=== PATIENT | male | born 1935 | race African-American/Black ===

== ENCOUNTER 2025-03-16 22:04 | Inpatient (IN) | payer OTHER ==
[~2025-03-16] VITALS: Ht 170.2 cm; Wt 65.3 kg
[2025-03-16] MEDS: SODIUM CHLORIDE 0.9% (SEPSIS BOLUS) IV ONE (22:34)
[2025-03-16] MEDS: CEFTRIAXONE 1GM/50ML 50 ML IV SCH (22:52)
[2025-03-16 23:11] LABS: BASOPHILS % 0.9 % (0.0-2.0); EOSINOPHILS % 3.8 % (0.0-5.0); HEMOGLOBIN. 10.7 g/dL (14.0-18.0); LYMPHOCYTES % 31.2 % (20.0-50.0); MEAN CORPUSCULAR HGB CONC 32.4 g/dL (31.0-37.0); MEAN CORPUSCULAR VOLUME 89.4 fL (80.0-94.0); MEAN PLATELET VOLUME 8.4 fl (7.4-10.4); NEUTROPHILS % 53.1 % (40.0-76.0); PLATELET 153 x1000/uL (130-400); RED BLOOD CELL COUNT 3.69 mill/uL (4.7-6.1); RED CELL DISTRIBUTION WIDTH 18.4 % (11.6-14.6); WHITE BLOOD COUNT 5.4 x1000/uL (4.5-11.0)
[2025-03-16 23:20] LABS: CHLORIDE 107 mEq/L (98-107); POTASSIUM 3.9 mEq/L (3.5-5.1); SODIUM 141 mEq/L (136-145)
[2025-03-16 23:21] LABS: CALCIUM 9.5 mg/dL (8.7-10.4); CARBON DIOXIDE 24 mEq/L (21-32)
[2025-03-16 23:26] LABS: CREATININE 1.4 mg/dL (0.6-1.3); GLUCOSE 125 mg/dL (70-105); UREA NITROGEN BLOOD 31 mg/dL (9-23)
[2025-03-16 23:27] LABS: D-DIMER 10.28 mg/L FEU (<0.50); INR 1.1; PROTHROMBIN TIME 11.9 sec (9.6-11.0); TROPONIN I HIGH SENSITIVITY 15 ng/L (3.0-53)
[2025-03-16 23:28] LABS: ALANINE AMINOTRANSFERASE 33 IU/L (10-49); ALBUMIN 3.6 g/dL (3.2-4.8); ASPARTATE AMINOTRANSFERASE 36 IU/L (<34); BILIRUBIN DIRECT 0.2 mg/dL (<=3.0)
[2025-03-16 23:29] LABS: BILIRUBIN TOTAL 0.6 mg/dL (0.1-1.0); PROTEIN TOTAL 5.6 g/dL (6.0-8.3)
[2025-03-16 23:31] LABS: LACTIC ACID 2.9 mmol/L (0.4-2.0)
[2025-03-17 01:20] LABS: TROPONIN I HIGH SENSITIVITY 19 ng/L (3.0-53)
[2025-03-17] MEDS ORDERED: DOXYCYCLINE HYCLATE 100 MG/VIAL IV ONE (04:30)
[2025-03-17] MEDS: IOHEXOL-350 100 ML BOTTLE ONE (05:01)
[2025-03-17] MEDS: PANTOPRAZOLE SODIUM 40 MG/VIAL IV SCH (06:28)
[2025-03-17] MEDS: DOXYCYCLINE 100MG/100ML 100 ML IV SCH (06:42)
[2025-03-17 08:00] VITALS: BP 110/47; PULSE 64; RESP 15; TEMP 36.4; O2SAT 99
[2025-03-17 08:30] VITALS: BP 110/47; PULSE 64; RESP 15; TEMP 36.4
[2025-03-17] MEDS ORDERED: ONDANSETRON HCL 4MG/2ML INJ IV PRN (09:30)
[2025-03-17] MEDS ORDERED: ACETAMINOPHEN 325MG TABLET PO PRN (09:30)
[2025-03-17 12:00] VITALS: BP 112/60; PULSE 62; RESP 15; TEMP 37.1; O2SAT 100
[2025-03-17 16:00] VITALS: BP_SYST 107; BP_SYST 115; BP_SYST 134; BP_SYST 98; BP_DIAS 54; BP_DIAS 58; BP_DIAS 61; PULSE 63; RESP 17; TEMP 36.5; O2SAT 98
[2025-03-17] MEDS: ENOXAPARIN 60MG/0.6ML SYR SUBCUT SCH (18:33)
[2025-03-17 20:00] VITALS: BP 125/58; PULSE 77; RESP 20; TEMP 35.6; O2SAT 97
[2025-03-18] VITALS: BP 123/63; PULSE 72; RESP 19; TEMP 35.6; O2SAT 98
[2025-03-18 04:00] VITALS: BP 135/69; PULSE 73; RESP 19; TEMP 35.9; O2SAT 97
[2025-03-18 06:31] LABS: BASOPHILS % 0.9 % (0.0-2.0); EOSINOPHILS % 9.3 % (0.0-5.0); HEMATOCRIT. 30.8 % (42.0-52.0); HEMOGLOBIN. 10.2 g/dL (14.0-18.0); LYMPHOCYTES % 39.1 % (20.0-50.0); MEAN CORPUSCULAR HEMOGLOBIN 28.9 pg (28.0-32.0); MEAN CORPUSCULAR HGB CONC 33.2 g/dL (31.0-37.0); MEAN PLATELET VOLUME 8.4 fl (7.4-10.4); MONOCYTES % 14.1 % (2.0-8.0); NEUTROPHILS % 36.6 % (40.0-76.0); PLATELET 124 x1000/uL (130-400); RED BLOOD CELL COUNT 3.54 mill/uL (4.7-6.1); RED CELL DISTRIBUTION WIDTH 17.6 % (11.6-14.6); WHITE BLOOD COUNT 3.4 x1000/uL (4.5-11.0)
[2025-03-18 06:49] LABS: CHLORIDE 110 mEq/L (98-107); POTASSIUM 4.1 mEq/L (3.5-5.1); SODIUM 140 mEq/L (136-145)
[2025-03-18 06:50] LABS: CARBON DIOXIDE 20 mEq/L (21-32)
[2025-03-18 06:51] LABS: CALCIUM 8.8 mg/dL (8.7-10.4)
[2025-03-18 06:55] LABS: CREATININE 1.1 mg/dL (0.6-1.3); GLUCOSE 88 mg/dL (70-105); UREA NITROGEN BLOOD 23 mg/dL (9-23)
[2025-03-18 08:00] VITALS: BP 121/56; PULSE 63; RESP 17; TEMP 36.6; O2SAT 99
[2025-03-18 09:23] LABS: CLARITY URINE CLEAR (CLEAR); COLOR URINE YELLOW (YELLOW); GLUCOSE URINE NEGATIVE (NEGATIVE); KETONES URINE NEGATIVE (NEGATIVE); LEUKOCYTE ESTERASE URINE NEGATIVE (NEGATIVE); NITRITE URINE NEGATIVE (NEGATIVE); OCCULT BLOOD URINE NEGATIVE (NEGATIVE); PH URINE 5.5 (4.5-8.0); PROTEIN URINE NEGATIVE (NEGATIVE); SPECIFIC GRAVITY URINE 1.023 (1.005-1.030); UROBILINOGEN URINE 0.2 E.U./dL (0.2-1.0)
[2025-03-18 12:00] VITALS: BP 112/55; PULSE 80; RESP 17; TEMP 36.6; O2SAT 100
[2025-03-18] MEDS ORDERED: APIX5TAB MT (12:55)
[2025-03-18 16:22] VITALS: BP 104/59; PULSE 77; RESP 16; TEMP 36.4; O2SAT 99
[2025-03-18 17:29] VITALS: BP 104/59; PULSE 77; TEMP 97.5; O2SAT 99
== END 2025-03-18 18:50 | disposition home or self-care (01) | DRG 73 ==
LOC: ER 22:04 → 6WST 03-17 04:28 → ENRESERV 03-17 07:54
PROVIDERS: ADMIT Internal Medicine; ATTEND Internal Medicine
DX: G90.89 Other disorders of autonomic nervous system (principal); N17.0 Acute kidney failure with tubular necrosis; C85.90 Non-Hodgkin lymphoma, unspecified, unspecified site; I82.491 Acute embolism and thrombosis of other specified deep vein of right lower extremity; I10 Essential (primary) hypertension; D64.9 Anemia, unspecified; E78.00 Pure hypercholesterolemia, unspecified; Z79.811 Long term (current) use of aromatase inhibitors
CPT/HCPCS: 36415; 71045; 71275; 80048; 80076; 81003; 83605; 83880; 84145; 84484; 85025; 85379; 86850; 86900; 93005; 93970; 97116; 97161; 97535; 99291; J0696; J1650; J2470; J3490; Q9967